=== PATIENT | female | born 1970 | race Caucasian/White ===

== ENCOUNTER 2016-10-27 01:11 | Emergency (ER) | payer MEDICAID, BC ==
[2016-10-27] MEDS ORDERED: IPRATROPIUM-ALBUTEROL 3 ML NEB INHALATION STA (01:44)
[2016-10-27] MEDS ORDERED: methylPREDNISolone SOD SUCCI 125 MG/2 ML VIAL IV STA (01:44)
--- NOTE | 2016-10-27 01:47 | ED ---
General Adult HPI - General Chief complaint: Upper Respiratory Infection Stated complaint: FELICIA Source: patient, RN notes reviewed Mode of arrival: ambulatory Limitations: no limitations - History of Present Illness Initial comments: This is a 46-year-old female presents emergency Department with a two-week history of intermittent cough some sputum production. Patient states she's also had intermittent shortness of breath. Patient states that difficult to breathing got significant last night and then again this evening so she decided to come to the emergency department. Patient states she hasn't smoked for 10 years. Patient denies any recent fever or chills. Patient denies any chest pain palpitations difficulty breathing. Patient denies any abdominal pain patient denies nausea vomiting or diarrhea. Patient denies any calf tenderness or leg swelling - Related Data Previous Rx's Medication Instructions Recorded Albuterol Inhaler [Ventolin Hfa 1 - 2 puff INHALATION Q6HR PRN #2 10/27/16 Inhaler] puff Azithromycin [Zithromax Tri-Colin] 500 mg PO DAILY #3 tab 10/27/16 predniSONE 40 mg PO DAILY #8 tab 10/27/16 Allergies Allergy/AdvReac Type Severity Reaction Status Date / Time No Known Allergies Allergy Verified 10/27/16 01:22 Review of Systems ROS Statement: Those systems with pertinent positive or pertinent negative responses have been documented in the HPI. ROS Other: All systems not noted in ROS Statement are negative. Past Medical History Past Medical History: No Reported History History of Any Multi-Drug Resistant Organisms: None Reported Past Surgical History: No Surgical Hx Reported Past Psychological History: No Psychological Hx Reported Smoking Status: Former smoker Past Alcohol Use History: Daily Past Drug Use History: None Reported General Exam - General Exam Comments Initial Comments: GENERAL: Patient is well-developed and well-nourished. Patient is nontoxic and well- hydrated and is in mild distress. ENT: Neck is soft and supple. No significant lymphadenopathy is noted. Oropharynx is clear. Moist mucous membranes. Neck has full range of motion without eliciting any pain. EYES: The sclera were anicteric and conjunctiva were pink and moist. Extraocular movements were intact and pupils were equal round and reactive to light. Eyelids were unremarkable. PULMONARY: Patient has diffuse expiratory wheezing CARDIOVASCULAR: There is a regular rate and rhythm without any murmurs gallops or rubs. ABDOMEN: Soft and nontender with normal bowel sounds. No palpable organomegaly was noted. There is no palpable pulsatile mass. SKIN: Skin is clear with no lesions or rashes and otherwise unremarkable. NEUROLOGIC: Patient is alert and oriented x3. Cranial nerves II through XII are grossly intact. Motor and sensory are also intact. Normal speech, volume and content. Symmetrical smile. MUSCULOSKELETAL: Normal extremities with adequate strength and full range of motion. No lower extremity swelling or edema. No calf tenderness. LYMPHATICS: No significant lymphadenopathy is noted PSYCHIATRIC: Normal psychiatric evaluation. Limitations: no limitations Course Vital Signs 10/27/16 10/27/16 10/27/16 01:18 01:45 01:52 Temperature 97.6 F Pulse Rate 97 86 84 Respiratory 20 22 Rate Blood Pressure 208/92 169/98 O2 Sat by Pulse 98 98 Oximetry 10/27/16 10/27/16 01:57 02:54 Temperature 98.6 F Pulse Rate 88 86 Respiratory 18 Rate Blood Pressure 158/99 O2 Sat by Pulse 97 Oximetry Medical Decision Making - Medical Decision Making 1 pack and reevaluate the patient I heard no wheezing at this time and she stated she was no longer short of breath. I gave the patient Rocephin because of the chronicity of the cough and sputum production - Lab Data Result diagrams: 10/27/16 01:49 10/27/16 01:49 Lab Results 10/27/16 10/27/16 Range/Units 01:49 01:49 WBC 6.1 (3.8-10.6) k/uL RBC 4.46 (3.80-5.40) m/uL Hgb 13.7 (11.4-16.0) gm/dL Hct 40.5 (34.0-46.0) % MCV 90.9 (80.0-100.0) fL MCH 30.8 (25.0-35.0) pg MCHC 33.9 (31.0-37.0) g/dL RDW 13.6 (11.5-15.5) % Plt Count 336 (150-450) k/uL Neutrophils % 58 % Lymphocytes % 28 % Monocytes % 4 % Eosinophils % 7 % Basophils % 1 % Neutrophils # 3.6 (1.3-7.7) k/uL Lymphocytes # 1.7 (1.0-4.8) k/uL Monocytes # 0.3 (0-1.0) k/uL Eosinophils # 0.4 (0-0.7) k/uL Basophils # 0.1 (0-0.2) k/uL Sodium 140 (137-145) mmol/L Potassium 3.5 (3.5-5.1) mmol/L Chloride 106 (98-107) mmol/L Carbon Dioxide 24 (22-30) mmol/L Anion Gap 10 mmol/L BUN 10 (7-17) mg/dL Creatinine 0.80 (0.52-1.04) mg/dL Est GFR (MDRD) Af Amer >60 (>60 ml/min/1.73 sqM) Est GFR (MDRD) Non-Af >60 (>60 ml/min/1.73 sqM) Glucose 97 (74-99) mg/dL Calcium 9.7 (8.4-10.2) mg/dL Total Bilirubin 0.9 (0.2-1.3) mg/dL AST 20 (14-36) U/L ALT 32 (9-52) U/L Alkaline Phosphatase 115 (38-126) U/L Total Protein 7.4 (6.3-8.2) g/dL Albumin 4.3 (3.5-5.0) g/dL Disposition Clinical Impression: Bronchitis with bronchospasm Disposition: HOME SELF-CARE Condition: Good Instructions: Bronchospasm (ED), Acute Bronchitis (ED) Prescriptions: Albuterol Inhaler [Ventolin Hfa Inhaler] 1 - 2 puff INHALATION Q6HR PRN #2 puff PRN Reason: Difficulty breathing Azithromycin [Zithromax Tri-Colin] 500 mg PO DAILY #3 tab predniSONE 40 mg PO DAILY #8 tab Referrals: Heriberto Celeste DO [Primary Care Provider] - 1-2 days Time of Disposition: 03:09
[2016-10-27 01:55] LABS: Basophils # (A) 0.1 k/uL (0-0.2); Basophils % (A) 1 %; CHCM 34.2; Eosinophils # (A) 0.4 k/uL (0-0.7); Eosinophils % (A) 7 %; HCT 40.5 % (34.0-46.0); HDW 2.83; HGB 13.7 gm/dL (11.4-16.0); Luc # (Auto) 0.15; Luc % (Auto) 3; Lymphocytes # (A) 1.7 k/uL (1.0-4.8); Lymphocytes % (A) 28 %; MCH 30.8 pg (25.0-35.0); MCHC 33.9 g/dL (31.0-37.0); MCV 90.9 fL (80.0-100.0); Mean Platelet Volume 6.3; Monocytes # (A) 0.3 k/uL (0-1.0); Monocytes % (A) 4 %; Neutrophils # (A) 3.6 k/uL (1.3-7.7); Neutrophils % (A) 58 %; RBC 4.46 m/uL (3.80-5.40); RDW 13.6 % (11.5-15.5); WBC 6.1 k/uL (3.8-10.6); WBC (Perox) 5.87
[2016-10-27 02:14] LABS: ALT 32 U/L (9-52); AST 20 U/L (14-36); Alkaline Phosphatase 115 U/L (38-126); Anion Gap 10 mmol/L; Blood Urea Nitrogen 10 mg/dL (7-17); Calcium 9.7 mg/dL (8.4-10.2); Carbon Dioxide 24 mmol/L (22-30); Chloride 106 mmol/L (98-107); Glucose 97 mg/dL (74-99); Non-African American GFR(MDRD) >60 (>60 ml/min/1.73 sqM); Potassium 3.5 mmol/L (3.5-5.1); Sodium 140 mmol/L (137-145); Total Bilirubin 0.9 mg/dL (0.2-1.3); Total Protein 7.4 g/dL (6.3-8.2)
[2016-10-27 02:57] VITALS: RESP 18; TEMP 98.6
--- NOTE | 2016-10-27 03:06 | XR ---
EXAM: XR Chest, 2 Views. CLINICAL HISTORY: Reason: Difficulty breathing TECHNIQUE: Frontal and lateral views of the chest. COMPARISON: No relevant prior studies available. FINDINGS: Lungs: Unremarkable. No consolidation. Pleural space: Unremarkable. No pneumothorax. Heart: Unremarkable. No cardiomegaly. Mediastinum: Unremarkable. Bones/joints: Unremarkable. IMPRESSION: Normal chest
[2016-10-27 04:10] VITALS: BP 143/87; PULSE 87
== END 2016-10-27 04:11 | disposition home or self-care (01) ==
LOC: EC 01:11
DX: J40 Bronchitis, not specified as acute or chronic (principal); J98.01 Acute bronchospasm; Z87.891 Personal history of nicotine dependence
CPT/HCPCS: 99284 ×2; 96365 ×2; 96375 ×2; 36415; 94640; 80053; 85025; 87040; 71020; J2930; J0696

== ENCOUNTER → 2017-07-14 | Outpatient (CLI) | payer OTHER ==
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
--- NOTE | 2017-07-14 16:30 | XR ---
Lumbar spine HISTORY: Trauma and pain 3 views of the lumbar spine Bone mineralization, joint spaces and alignment are maintained. Mild spondylosis present at L4 and L3 . Disc spaces are mildly reduced L3-4, L4-5. Possible lumbarization of S1. IMPRESSION: No acute fracture or subluxation. Mild degenerative disc disease.
== END ==
LOC: RADXRMAIN 16:03
PROVIDERS: ATTEND Emergency Medicine
DX: S33.5XXA Sprain of ligaments of lumbar spine, initial encounter (principal); S80.02XA Contusion of left knee, initial encounter; S83.92XA Sprain of unspecified site of left knee, initial encounter; W00.0XXA Fall on same level due to ice and snow, initial encounter
CPT/HCPCS: 72100

== ENCOUNTER → 2017-07-21 | Outpatient (CLI) | payer OTHER ==
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
== END | disposition home or self-care (01) ==
LOC: RADMRIMAIN 14:14
PROVIDERS: ATTEND Emergency Medicine
DX: S33.5XXD Sprain of ligaments of lumbar spine, subsequent encounter (principal); S80.02XD Contusion of left knee, subsequent encounter; S83.92XD Sprain of unspecified site of left knee, subsequent encounter

== ENCOUNTER 2020-07-08 15:16 | Emergency (ER) | payer BC, OTHER, MEDICAID ==
[2020-07-08 15:24] VITALS: RESP 18
[2020-07-08] MEDS ORDERED: MORPHINE SULFATE 4 MG/ML SYRINGE IV STA (15:35)
[2020-07-08] MEDS ORDERED: SODIUM CHLORIDE 0.9% 1,000 ML IV STA (15:35)
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
[2020-07-08 16:09] LABS: Basophils # (A) 0.1 k/uL (0-0.2); Basophils % (A) 0 %; Eosinophils # (A) 0.1 k/uL (0-0.7); Eosinophils % (A) 1 %; HCT 39.7 % (34.0-46.0); HGB 13.4 gm/dL (11.4-16.0); Lymphocytes # (A) 1.2 k/uL (1.0-4.8); Lymphocytes % (A) 9 %; MCH 30.6 pg (25.0-35.0); MCHC 33.6 g/dL (31.0-37.0); MCV 91.1 fL (80.0-100.0); Mean Platelet Volume 6.3; Monocytes # (A) 0.5 k/uL (0-1.0); Monocytes % (A) 4 %; Neutrophils # (A) 10.5 k/uL (1.3-7.7); Neutrophils % (A) 85 %; Platelet Count 324 k/uL (150-450); RBC 4.36 m/uL (3.80-5.40); RDW 13.7 % (11.5-15.5); WBC 12.3 k/uL (3.8-10.6)
[2020-07-08 16:15] LABS: ALT 51 U/L (4-34); AST 81 U/L (14-36); African American GFR (CKD) >90 (>60 ml/min/1.73 sqM); Albumin 4.6 g/dL (3.5-5.0); Alkaline Phosphatase 127 U/L (38-126); Anion Gap 12 mmol/L; Blood Urea Nitrogen 12 mg/dL (7-17); Carbon Dioxide 21 mmol/L (22-30); Chloride 101 mmol/L (98-107); Glucose 107 mg/dL (74-99); Lipase 44 U/L (23-300); Non-African American GFR(CKD) >90 (>60 ml/min/1.73 sqM); Potassium 4.1 mmol/L (3.5-5.1); Sodium 134 mmol/L (137-145); Total Bilirubin 0.5 mg/dL (0.2-1.3); Total Protein 7.8 g/dL (6.3-8.2)
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
[2020-07-08] MEDS ORDERED: MORPHINE SULFATE 4 MG/ML SYRINGE IVP STA (16:41)
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
[2020-07-08] MEDS ORDERED: LIDOCAINE 5% PATCH TOPICAL STA (16:58)
[2020-07-08 17:55] VITALS: BP 128/78; PULSE 79; TEMP 97.9
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
== END 2020-07-08 17:55 | disposition home or self-care (01) ==
LOC: EC 15:16
DX: S22.42XA Multiple fractures of ribs, left side, initial encounter for closed fracture (principal); R74.8 Abnormal levels of other serum enzymes; Z87.891 Personal history of nicotine dependence; V89.2XXA Person injured in unspecified motor-vehicle accident, traffic, initial encounter; Y92.410 Unspecified street and highway as the place of occurrence of the external cause
CPT/HCPCS: 36415; 80053; 83690; 85025; 72170; 71045; 71260; 74177; 99285; 96374; 96376; 96361; J2270; Q9967

== ENCOUNTER → 2020-08-15 | Outpatient (CLI) | payer OTHER ==
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
== END | disposition home or self-care (01) ==
LOC: RADXRMAIN 17:02
PROVIDERS: ATTEND Nurse Practitioner Family
DX: Z09 Encounter for follow-up examination after completed treatment for conditions other than malignant neoplasm (principal); Z87.81 Personal history of (healed) traumatic fracture

== ENCOUNTER → 2021-03-27 | Outpatient (CLI) | payer MEDICAID, BC ==
--- NOTE | 2021-04-03 08:54 | MM ---
Reason for exam: screening (asymptomatic). Last mammogram was performed 8 years and 2 months ago. History: Family history of breast cancer in mother at age 75. Physical Findings: A clinical breast exam by your physician is recommended on an annual basis and results should be correlated with mammographic findings. MG 3D Screening Mammo W/Cad Bilateral CC, MLO, and XCCL view(s) were taken. Prior study comparison: January 05, 2013, mammogram, performed at [facility]. The breast tissue is heterogeneously dense. This may lower the sensitivity of mammography. Possible mass versus dense island of tissue left posterior upper outer quadrant measuring 3cm. Additional central left MLO asymmetric density incompletely disperses. ASSESSMENT: Incomplete: need additional imaging evaluation, BI-RAD 0 RECOMMENDATION: Special view mammogram of the left breast. If lesion persists on supplemental views, image directed ultrasound is recommended. [facility] will attempt to contact patient to return for supplemental views and ultrasound if indicated.
== END | disposition home or self-care (01) ==
LOC: RADMAMWWP 16:03
PROVIDERS: ATTEND Family Medicine
DX: Z12.31 Encounter for screening mammogram for malignant neoplasm of breast (principal); Z80.3 Family history of malignant neoplasm of breast
CPT/HCPCS: 77063; 77067

== ENCOUNTER → 2021-04-22 | Outpatient (CLI) | payer MEDICAID, BC ==
--- NOTE | 2021-04-22 15:45 | USB ---
EXAMINATION TYPE: US breast workup limited LT DATE OF EXAM: 04/22/2021 COMPARISON: Mammogram same date, 03/27/2021 CLINICAL HISTORY: r92.8 abn mammo. Findings: Left breast ultrasound was performed from 12:00 to 5:00 and in the retroareolar region and axilla. In the left breast at 2:00, there is a 1.9 x 1.0 x 2.0 cm microlobulated hypoechoic mass which corres ponds well in size, location and morphology to the mass on mammogram. Due to slightly microlobulated margins, ultrasound-guided biopsy is recommended. In the left breast at 5:00, there is a 0.5 x 0.3 x 0.5 cm simple cyst which corresponds well in size, location and morphology to the asymmetry seen on mammogram and is benign. Mild ductal ectasia is noted in the retroareolar left breast. IMPRESSION: Ultrasound-guided biopsy is recommended for the 2.0 cm mass in the left breast at 2:00. BI-RADS 4, suspicious.
--- NOTE | 2021-04-23 08:12 | MM ---
Reason for exam: additional evaluation requested from abnormal screening. Last mammogram was performed 1 month ago. History: Family history of breast cancer in mother at age 75. Physical Findings: Nurse Summary: 1 x 1cm nodule in the left breast at 2 o'clock (nurse ts). MG 3D Work Up W/Cad LT Spot compression XCCL, spot compression MLO, and LM view(s) were taken of the left breast. Prior study comparison: March 27, 2021, bilateral MG 3d screening mammo w/cad. January 27, 2013, mammogram, performed at [facility]. The breast tissue is heterogeneously dense. This may lower the sensitivity of mammography. There is a persistent large upper outer quadrant posterior mass and ultrasound is recommended. There is a persistent asymmetry in the lower left breast at middle depth on MLO and lateral view only likely outer quadrant and ultrasound is recommended. These results were verbally communicated with the patient and result sheet given to the patient on 04/22/21. ASSESSMENT: Incomplete: need additional imaging evaluation, BI-RAD 0 RECOMMENDATION: Ultrasound of the left breast.
== END | disposition home or self-care (01) ==
LOC: RADMAMWWP 13:46
PROVIDERS: ATTEND Family Medicine
DX: N63.21 Unspecified lump in the left breast, upper outer quadrant (principal)
CPT/HCPCS: 77061; 77065

== ENCOUNTER → 2021-08-14 | Day surgery (SDC) | payer BC, MEDICAID ==
[2021-08-14 12:33] VITALS: RESP 16
[2021-08-14 13:27] VITALS: BP 159/89; PULSE 87; TEMP 98.1
--- NOTE | 2021-08-14 13:47 | USB ---
EXAMINATION TYPE: US biopsy breast VAD LT, MG diagnostic mammo LT wo CAD DATE OF EXAM: 08/14/2021 CLINICAL HISTORY: R92.8 ABN MAMMO. TECHNIQUE: Ultrasound guided core biopsy of left 2:00 breast. COMPARISON: NONE FINDINGS: The procedure of ultrasound guided core biopsy was explained to the patient. Benefits, alternatives, and risks were discussed. An informed consent was then obtained. The patient was placed in supine positioning for imaging and for the procedure. The overlying skin was prepped and draped in usual sterile fashion. Lidocaine buffered with bicarbonate was used as anesthetic into the skin and subcutaneous tissue up to area of concern in the left 2:00 breast. Under ultrasound guidance, a 12-gauge vacuum assisted biopsy gun device was used to obtain 4 core samples. Following this, a biopsy clip was left in lesion. Postprocedural mammogram demonstrates appropriate clip deployment. The patient tolerated the procedure well without any immediate complication. The patient was kept in the radiology department for short stay after the procedure and then discharged home in stable condition. IMPRESSION: Successful, uncomplicated ultrasound guided core biopsy of area of concern in the left 2:00 breast, full pathology results to follow. Pathology Results: Benign LEFT BREAST, 2:00, ULTRASOUND GUIDED CORE BIOPSY: Fibroadenoma and background fibrocystic changes. Recommendation Follow up mammogram of the left breast in 6 months. LYDIAD
== END | disposition home or self-care (01) ==
LOC: RADUSWWP 12:06
PROVIDERS: ATTEND Surgery
DX: R92.8 Other abnormal and inconclusive findings on diagnostic imaging of breast (principal); D24.2 Benign neoplasm of left breast
CPT/HCPCS: 88305; 77065; 19083; A4648; J2001

== ENCOUNTER → 2021-11-11 | Outpatient (CLI) | payer BC | END | disposition home or self-care (01) | LOC: LABWHC1 15:46 | PROVIDERS: ATTEND Nurse Practitioner Family | DX: E87.1 Hypo-osmolality and hyponatremia (principal) | CPT/HCPCS: 36415; 82306 ==

== ENCOUNTER → 2022-02-12 | Outpatient (CLI) | payer BC ==
--- NOTE | 2022-02-12 17:44 | MM ---
Reason for Exam: Follow-up at short interval from prior study. Last screening mammogram was performed 11 month(s) ago. Patient History: Menarche at age 13. First Full-Term at age 21. Patient has history of breast feeding. 08/14/2021, Benign Core Biopsy on the left side. Mother had breast cancer, right, age 75. Last menstrual period: 08/28/2021 Risk Values: Jessi 5 year model risk: 2.2%. NCI Lifetime model risk: 19.1%. Prior Study Comparison: 03/27/2021 Bilateral Screening Mammogram, [facility]. 04/22/2021 Left Diagnostic Mammogram, [facility]. 08/14/2021 Left Diagnostic Mammogram, [facility]. Tissue Density: Left: The breast tissue is heterogeneously dense. This may lower the sensitivity of mammography. Findings: Analyzed By CAD. There is an old density with partially obscured margins in the upper outer aspect left breast which contains the corpus marker from the recent biopsy. Dense parenchymal tissue otherwise appears stable from comparison. No significant interval changes are evident. Overall Assessment: Benign, BI-RAD 2 Management: Screening Mammogram of both breasts in 6 months. A clinical breast exam by your physician is recommended on an annual basis and results should be correlated with mammographic findings. This exam should not preclude additional follow-up of suspicious palpable abnormalities. Results were given to the patient verbally at the time of exam. Electronically signed and approved by: Enoc Sorto D.O. Radiologis
== END | disposition home or self-care (01) ==
LOC: RADMAMWWP 14:59
PROVIDERS: ATTEND Surgery
DX: R92.8 Other abnormal and inconclusive findings on diagnostic imaging of breast (principal); Z80.3 Family history of malignant neoplasm of breast
CPT/HCPCS: 77061; 77065

== ENCOUNTER → 2022-12-17 | Outpatient (CLI) | payer BC ==
--- NOTE | 2022-12-18 08:12 | MM ---
Reason for Exam: Screening (asymptomatic). Last mammogram was performed 1 year(s) and 9 month(s) ago. Patient History: Menarche at age 13. First Full-Term at age 21. Patient has history of breast feeding. 08/14/2021, Benign Core Biopsy on the left side. Mother had breast cancer, right, age 75. Last menstrual period: Risk Values: Jessi 5 year model risk: 2.3%. NCI Lifetime model risk: 18.8%. Prior Study Comparison: 04/22/2021 Left Diagnostic Mammogram, [facility]. 08/14/2021 Left Diagnostic Mammogram, [facility]. 02/12/2022 Left MG 3D diag mammo w/cad , [facility]. Tissue Density: The breast tissue is heterogeneously dense. This may lower the sensitivity of mammography. Findings: Analyzed By CAD. There is no suspicious group of microcalcifications within either breast. No new suspicious mass within the right breast. Stable mass within the upper outer left breast with associated biopsy clip. No new suspicious mass within the left breast. Overall Assessment: Benign, BI-RAD 2 Management: Screening Mammogram of both breasts in 1 year. A clinical breast exam by your physician is recommended on an annual basis and results should be correlated with mammographic findings. Note on Jessi scores and lifetime risk: 1. A Jessi score greater than 3% is considered moderate risk. If this is the case, consider specialist referral to assess eligibility for a risk reducing agent. If overall lifetime risk for the development of breast cancer is 20% or higher, the patient may qualify for future screening with alternating mammogram and breast MRI. Electronically signed and approved by: Luis Gonzalez D.O.
== END | disposition home or self-care (01) ==
LOC: RADMAMWWP 16:46
PROVIDERS: ATTEND Surgery
DX: Z12.31 Encounter for screening mammogram for malignant neoplasm of breast (principal); Z80.3 Family history of malignant neoplasm of breast
CPT/HCPCS: 77063; 77067